=== PATIENT | female | born 1950 | race Caucasian/White ===

== ENCOUNTER 2022-08-17 15:28 | Outpatient (REF) | payer OTHER, SELFPAY ==
[2022-08-17 17:13] LABS: Erythrocyte Sedimentation Rate 23 MM/HR (0-20)
== END 2022-08-17 15:29 | disposition home or self-care (01) ==
LOC: HO.LAB 15:28
PROVIDERS: Visit Provider Psychiatry & Neurology Neurology
DX: G43.909 Migraine, unspecified, not intractable, without status migrainosus (principal)
CPT/HCPCS: 36415; 85652